=== PATIENT | female | born 1995 | race Two or more races ===

== ENCOUNTER 2018-01-05 23:20 | Inpatient (IN) | payer MEDICAID ==
[~2018-01-05] VITALS: Ht 147.3 cm; Wt 54.4 kg
[2018-01-06] MEDS ORDERED: cefTRIAXone 1GM/10ml IVPUSH 10 ML IV ONE (01:15)
[2018-01-06] MEDS ORDERED: SODIUM CHLORIDE 0.9% 1,000 ML IV ONE ×2 (01:15→06:45)
[2018-01-06 02:42] LABS: Basophils # (auto) 0 uL; Basophils % (auto) 0.3 % (0.0-2.0); Eosinophils # (auto) 0.1 uL; Eosinophils % (auto) 0.8 % (0.0-7.0); Hematocrit 36.8 % (36.0-46.0); Hemoglobin 12.1 g/dL (12.2-16.2); Lymphocytes # (auto) 3.2 uL; Lymphocytes % (auto) 20.1 % (10.0-50.0); Mean Corpuscular Hemoglobin 30.1 pg (28.0-32.0); Mean Corpuscular Hgb Conc. 32.9 g/dL (32.0-36.0); Mean Corpuscular Volume 91.4 fL (80.0-100.0); Monocytes # (auto) 1.2 uL; Monocytes % (auto) 7.6 % (0.0-12.0); Neutrophils # (auto) 11.5 uL; Neutrophils % (auto) 71.2 % (37.0-80.0); Platelet Count (auto) 212 10^3/uL (140-450); Red Blood Cells 4.03 10^6/uL (4.0-5.20); Red Cell Distribution Width 14.5 % (11.8-14.3); White Blood Cell 16.1 10^3/uL (4.4-10.8)
[2018-01-06 02:59] LABS: Albumin 3.2 g/dL (3.4-5.0); BUN/Creatinine Ratio 25.5; Calcium 8.1 mg/dL (8.5-10.1); Potassium 3.7 mmol/L (3.5-5.1)
[2018-01-06 03:02] LABS: Bilirubin, Total 0.3 mg/dL (0.2-1.0); Total Protein 6.7 g/dL (6.4-8.2)
[2018-01-06] MEDS ORDERED: ONDANSETRON HCL 4 MG/2 ML VIAL IV ONE (03:30)
[2018-01-06] MEDS ORDERED: NALBUPHINE HCL 10 MG/1ml INJECTION IV ONE (03:30)
[2018-01-06] MEDS ORDERED: TEMAZEPAM 15 MG CAP PO PRN (04:00)
[2018-01-06] MEDS ORDERED: ONDANSETRON HCL 4 MG/2 ML VIAL IV PRN (04:00)
[2018-01-06] MEDS ORDERED: ACETAMINOPHEN 325 MG TAB PO PRN (04:00)
[2018-01-06] MEDS ORDERED: VANCOMYCIN 1GM/250ML 250 ML IV ONE (04:00)
[2018-01-06] MEDS: HYDROcodone-ACET 5/325MG TAB PO PRN ×2 (05:08→20:07)
[2018-01-06] MEDS: FAMOTIDINE 20 MG TAB PO SCH ×2 (10:00→21:22)
[2018-01-06] MEDS ORDERED: LIDOCAINE 1% HCL (LOCAL ANESTH.) INJ 20ML MDV ONE (10:07)
[2018-01-06] MEDS ORDERED: GLYCOPYRROLATE 0.2 MG/ML 1ML VIAL ONE (10:18)
[2018-01-06] MEDS ORDERED: PROPOFOL 10 MG/ML 20 ML IV ONE (10:18)
[2018-01-06] MEDS ORDERED: KETOROLAC TROMETH 30 MG/ML 1ML VIAL ONE (10:18)
[2018-01-06] MEDS ORDERED: NEOSTIGMINE 1 MG/ML INJ (10mg/10ML VIAL) ONE (10:18)
[2018-01-06] MEDS ORDERED: SODIUM CHLORIDE LOCK 10 ML ONE (10:18)
[2018-01-06] MEDS ORDERED: ROCURONIUM 10MG/ML 10ML VIAL IV ONE (10:18)
[2018-01-06] MEDS ORDERED: MIDAZOLAM HCL 1MG/1ML-2 ML VIAL ONE (10:18)
[2018-01-06] MEDS ORDERED: fentaNYL CITRATE 100 MCG/2 ML VL ONE (10:18)
[2018-01-06] MEDS ORDERED: ceFAZolin 1GM/50ML 50 ML IV ONE (10:35)
[2018-01-06] MEDS ORDERED: HYDROmorphone HCL 2 MG/ML VL IV PRN (10:45)
[2018-01-06] MEDS: KETOROLAC TROMETH 30 MG/ML 1ML VIAL IV ONE ×2 (10:45→12:45)
[2018-01-06] MEDS ORDERED: METOCLOPRAMIDE HCL 5MG/ml INJ 2ml VIAL IV ONE (10:45)
[2018-01-06] MEDS ORDERED: SUCCINYLCHOLINE CHLORIDE 20 MG/ML 10ML VIAL IV ONE (11:04)
[2018-01-06 11:13] LABS: Urine Bacteria FEW /hpf (None Seen); Urine Blood Negative /uL (Negative); Urine Mucus FEW (None Seen); Urine Specific Gravity 1.025 (1.001-1.035); Urine WBC 11 /hpf (0 - 5)
[2018-01-06 11:13] LABS: INR 1.15 (0.9-1.15); Partial Thromboplastin Time 31.3 sec (22.64-33.71); Prothrombin Time 12.5 sec (9.37-12.3)
[2018-01-06 13:08] VITALS: BP 91/56
[2018-01-06 14:25] VITALS: BP 91/56
[2018-01-06] MEDS: SODIUM CHLORIDE 0.9% 1,000 ML IV SCH (15:07)
[2018-01-06 17:00] VITALS: BP 84/48
[2018-01-06] MEDS: cefTRIAXone 1GM/10ml IVPUSH 10 ML IV SCH (21:21)
[2018-01-06 22:00] VITALS: BP 84/41
[2018-01-07] MEDS: SODIUM CHLORIDE 0.9% 1,000 ML IV SCH ×3 (04:15→22:05)
[2018-01-07 05:00] VITALS: BP 83/44
[2018-01-07 05:34] LABS: Basophils # (auto) 0 uL; Basophils % (auto) 0.3 % (0.0-2.0); Eosinophils # (auto) 0.2 uL; Eosinophils % (auto) 2.1 % (0.0-7.0); Hematocrit 30.8 % (36.0-46.0); Hemoglobin 10.3 g/dL (12.2-16.2); Lymphocytes # (auto) 2.7 uL; Lymphocytes % (auto) 32.4 % (10.0-50.0); Mean Corpuscular Hemoglobin 30.8 pg (28.0-32.0); Mean Corpuscular Hgb Conc. 33.4 g/dL (32.0-36.0); Mean Corpuscular Volume 92.4 fL (80.0-100.0); Monocytes # (auto) 0.7 uL; Monocytes % (auto) 7.9 % (0.0-12.0); Neutrophils # (auto) 4.8 uL; Neutrophils % (auto) 57.3 % (37.0-80.0); Nucleated Red Blood Cells % 0.1 %; Platelet Count (auto) 166 10^3/uL (140-450); Red Blood Cells 3.34 10^6/uL (4.0-5.20); Red Cell Distribution Width 14.4 % (11.8-14.3); White Blood Cell 8.3 10^3/uL (4.4-10.8)
[2018-01-07 05:56] LABS: Albumin 2.3 g/dL (3.4-5.0); BUN/Creatinine Ratio 24.4; Bilirubin, Total 0.2 mg/dL (0.2-1.0); Calcium 7.6 mg/dL (8.5-10.1); Potassium 3.7 mmol/L (3.5-5.1); Total Protein 5.3 g/dL (6.4-8.2)
[2018-01-07 09:00] VITALS: BP 92/54
[2018-01-07] MEDS: FAMOTIDINE 20 MG TAB PO SCH ×2 (09:34→22:03)
[2018-01-07 13:00] VITALS: BP 94/62
[2018-01-07] MEDS: MORPHINE SULFATE 4 MG/ML SYR/VIAL IV PRN ×2 (13:10→22:15)
[2018-01-07] MEDS: HYDROcodone-ACET 5/325MG TAB PO PRN (15:05)
[2018-01-07 17:00] VITALS: BP 100/55
[2018-01-07] MEDS: cefTRIAXone 1GM/10ml IVPUSH 10 ML IV SCH (22:04)
[2018-01-08 04:36] VITALS: BP 88/55
[2018-01-08 09:00] VITALS: BP_SYST 139; BP_SYST 94; BP_DIAS 55; BP_DIAS 89
[2018-01-08] MEDS: FAMOTIDINE 20 MG TAB PO SCH ×2 (09:59→10:00)
[2018-01-08 12:30] VITALS: BP 106/59
[2018-01-08 14:51] VITALS: BP 94/55
== END 2018-01-08 15:45 | disposition home or self-care (01) | DRG 710 ==
LOC: ER 23:20 → OVERFLOW 23:21 → CENTRAL 01-06 13:24
PROVIDERS: ADMIT Nurse Practitioner; ATTEND Internal Medicine
PROC: 0J990ZZ Drainage of Buttock Subcutaneous Tissue and Fascia, Open Approach (ICD-10-PCS; principal; 2018-01-06 11:04)
DX: A41.9 Sepsis, unspecified organism (principal); E44.0 Moderate protein-calorie malnutrition; L05.01 Pilonidal cyst with abscess
CPT/HCPCS: 36415; 80053; 81001; 81025; 83605; 83735; 85025; 85610; 85730; 87070; 87075; 87205; 96361; 96374; 96375; J0330; J0690; J1885; J2001; J2250; J2405; J2704